=== PATIENT | male | born 1975 | race Caucasian/White ===

== ENCOUNTER 2023-01-01 17:18 | Emergency (ER) | payer OTHER, SELFPAY ==
[2023-01-01 17:19] VITALS: BP 138/87; PULSE 67; RESP 14; TEMP 36.2; O2SAT 98; BMI 29.0
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
[2023-01-01] MEDS: Lidocaine 1% (20 ml mdv) 20 ML Vial INFILT (18:40)
[2023-01-01] MEDS: Cephalexin 250 MG Capsule 500 MG PO (18:41)
[2023-01-01] MEDS: Diphth,Pertuss(Acell),Tet Vac 0.5 ML Vial IM (18:41)
[2023-01-01 18:48] VITALS: RESP 17
== END 2023-01-01 19:09 | disposition home or self-care (01) ==
LOC: ED 18:36
PROVIDERS: Emergency Provider Emergency Medicine; Visit Provider Emergency Medicine
DX: S80.212A Abrasion, left knee, initial encounter (principal); S61.411A Laceration without foreign body of right hand, initial encounter; W19.XXXA Unspecified fall, initial encounter; Z23 Encounter for immunization
CPT/HCPCS: 12002; 90471; 90715; 99283